=== PATIENT | male | born 1945 | race Caucasian/White ===

== ENCOUNTER 2024-09-10 15:36 | Day surgery (SDC) | payer MEDICARE, SELFPAY ==
[2024-09-10] VITALS (7 sets, daily range): BP systolic 118–161; BP diastolic 59–94; PULSE 87–104; RESP 10–20; TEMP 36.3–36.6; O2SAT 97–100
[2024-09-10] MEDS: ONDANSETRON HCL ODT 4 MG TABLET PO (16:24)
--- NOTE | 2024-09-10 17:32 | ED_ITS ---
HPI - Epistaxis General Chief complaint: Epistaxis Stated complaint: Nose Bleed Time Seen by Provider: 09/10/24 15:47 History of Present Illness HPI Narrative: Patient is on Plavix, had a septum repair 3 weeks ago in [place], was driving to [place] and started having a nose bleed, went to Urgent Care were Merocel placed and he was sent to the ER. Still having ongoing bleeding Related Data Allergies Allergy/AdvReac Type Severity Reaction Status Date / Time No Known Allergies Allergy Verified 09/10/24 15:38 Review of Systems 2 Review of Systems: All systems reviewed & are unremarkable except as noted in HPI and below Exam 2 Narrative: EXAMINATION OF ORGAN SYSTEMS/BODY AREAS: Constitutional: Vital signs per nursing GENERAL:[No acute distress, non-toxic appearing.] HEAD: Normal with no signs of head trauma. EYES: Tearing up ENT: Some blood dripping from both nares, L side with Merocel LUNGS: Nonlabored breathing. HEART: [Regular rate and rhythm] ABD: [Soft], [nontender to palpation] EXT: Normal range of motion SKIN: [No rashes or lesions.] NEURO: [Alert and oriented x 3. No gross focal sensory or strength deficits.] PSYCH: Normal affect Course Vital Signs Vital signs: Vital Signs Temperature 97.4 F L 09/10/24 15:40 Pulse Rate 104 H 09/10/24 15:40 Respiratory Rate 20 09/10/24 15:40 Blood Pressure 127/94 H 09/10/24 15:40 Pulse Oximetry 98 09/10/24 15:40 Oxygen Delivery Room Air 09/10/24 15:40 Temperature 97.5 F L 09/10/24 17:44 Pulse Rate 95 09/10/24 17:44 Respiratory Rate 18 09/10/24 17:44 Blood Pressure 129/59 L 09/10/24 17:44 Pulse Oximetry 100 09/10/24 17:44 Oxygen Delivery Room Air 09/10/24 15:40 Procedures Epistaxis Control bilateral: Epistaxis Control Date: 09/10/24 Epistaxis Control Time: 15:55 Nose Prepped With: lidocaine, oxymetazoline and other (TXA) Direct Inspection: unable to visualize Clots Removed by: blowing nose and manually Device Inserted: hemostatic balloon Device Size: 7 Patient Tolerated Procedure: well Complications: continued epistaxis MDM - Epistaxis MDM Narrative Medical decision making narrative: Patient presenting here with ongoing nosebleed, had recent septum surgery, I did atomize GEORGIDennise Afrin, removed the Merocel and then packed both nares with lidocaine with epinephrine soaked gauze while soaking the two long rhino rockets in lidocaine. Cause then removed and patient instructed to blow nose, large amount of clot removed with blowing and with manual extraction, then I did place rhino rocket, inflated, into the left naris, there was still additional bleeding around the rhino rocket so I then applied it to the right naris. Patient was uncomfortable but tolerated this well, unfortunately he was still having sensation of blood going down his throat after about an hour, I did discuss this with ENT who will come into hospital for surgical intervention. Discussed with patient and at bedside, he has felt resolution of his symptoms, discussed again with ENT, he feels that this may start bleeding again and he would like to have definitive management, patient and agree with plan. Lab Data 09/10/24 17:34 09/10/24 17:34 Labs: Lab Results 09/10/24 Range/Units 17:34 WBC 8.2 (4.5-10.0) K/mm3 RBC 4.40 L (4.6-6.20) M/mm3 Hgb 13.1 L (14.0-18.0) g/dL Hct 40.9 L (42.0-52.0) % MCV 93.0 (80-100) fl MCH 29.8 (26-34) pg MCHC 32.0 (32-36) g/dl RDW 14.1 (11.5-14.5) % Plt Count 149 L (150-375) k/mm3 MPV 10.9 H (7.4-10.4) fl Immature Gran % (Auto) 0.2 (0-0.5) % Neut % (Auto) 75.1 H (45.5-73.1) % Lymph % (Auto) 13.6 L (18.3-44.2) % [place] % (Auto) 7.6 (2.6-8.5) % Eos % (Auto) 2.8 (0-4.4) % Baso % (Auto) 0.7 (0.2-1.2) % Lymph # (Auto) 1.11 (0.9-3.2) K/mm3 [place] # (Auto) 0.6 (0.1-0.6) K/mm3 Eos # (Auto) 0.2 (0-0.3) K/mm3 Baso # (Auto) 0.1 (0.0-0.1) K/mm3 Abs Immat Gran (auto) 0.02 (0.00-0.031) K/mm3 Absolute Neuts (auto) 6.1 (1.3-6.7) K/mm3 Absolute Nucleated RBC 0.000 (0.0-0.012) K/mm3 Nucleated RBC % 0.0 (0.0-0.2) % PT Pending INR Pending APTT Pending Sodium Pending Potassium Pending Chloride Pending Carbon Dioxide Pending Anion Gap Pending BUN Pending Creatinine Pending Estim Creat Clear Calc Pending Estimated GFR Pending Glucose Pending Calcium Pending Discharge Plan Discharge Clinical Impression: Epistaxis Patient Disposition: Still a Patient Condition: Stable
[2024-09-10 17:43] LABS: Basophils Absolute Auto 0.1 K/mm3 (0.0-0.1); Basophils Percent Auto 0.7 % (0.2-1.2); Eosinophils Absolute Auto 0.2 K/mm3 (0-0.3); Eosinophils Percent Auto 2.8 % (0-4.4); Hematocrit 40.9 % (42.0-52.0); Hemoglobin 13.1 g/dL (14.0-18.0); Immature Granulocyte Absolute 0.02 K/mm3 (0.00-0.031); Immature Granulocyte Percent A 0.2 % (0-0.5); Lymphocytes Absolute Auto 1.11 K/mm3 (0.9-3.2); Lymphocytes Percent Auto 13.6 % (18.3-44.2); Mean Corpuscular Hemoglobin 29.8 pg (26-34); Mean Platelet Volume 10.9 fl (7.4-10.4); Monocytes Absolute Auto 0.6 K/mm3 (0.1-0.6); Monocytes Percent Auto 7.6 % (2.6-8.5); Neutrophils Absolute Auto 6.1 K/mm3 (1.3-6.7); Neutrophils Percent Auto 75.1 % (45.5-73.1); Platelet Count Result 149 k/mm3 (150-375); Red Cell Distribution Width 14.1 % (11.5-14.5); White Blood Count 8.2 K/mm3 (4.5-10.0)
[2024-09-10 17:57] LABS: Anion Gap 14 mmol/L (4-12); Blood Urea Nitrogen 29 mg/dL (9-20); Calcium 9.9 mg/dL (8.4-10.2); Carbon Dioxide 21 mmol/L (22-30); Chloride 106 mmol/L (98-107); Estimated CRCL calculation 57 ml/min; Estimated Glomerular Filt Rate > 60; Glucose 175 mg/dL (65-110); Potassium 4.4 mmol/L (3.4-5.0); Sodium 141 mmol/L (137-145)
[2024-09-10 17:59] LABS: INR 1.1; Prothrombin Time 14.5 Seconds (11.1-14.7)
[2024-09-10 18:00] LABS: Partial Thromboplastin Time 32.1 Seconds (22.3-36.8)
--- NOTE | 2024-09-10 18:00 | P.HP_ITS ---
H&P: HPI History of Present Illness Date/Time: 09/10/24 18:00 Chief Complaint: epistaxis Narrative: Sorin had septoplasty in [facility] 2 weeks ago. On plavix, hx of cardiac surgery and stenting. He lives in [place], was driving to [place] to sell his RV and developed epixtasis in our community and came to the ER. Required two rhinorockets, but had persistent bleeding. Concern for posterior bleeding. ENT consulted. Review of Systems Review of Systems: All systems reviewed & are unremarkable except as noted in HPI and below Meds Home Medications and Allergies Allergies Allergy/AdvReac Type Severity Reaction Status Date / Time No Known Allergies Allergy Verified 09/10/24 15:38 Vital Signs Vital Signs - 24 hr 09/10/24 15:40 09/10/24 17:44 Temperature 36.3 C L 36.4 C L Pulse Rate 104 H 95 Respiratory Rate 20 18 Blood Pressure 127/94 H 129/59 L Pulse Oximetry 98 100 Oxygen Delivery Room Air Exam Narrative: Bilateral posterior rhinrockets in place, still spitting up blood. Blood clot in oropharynx. Non distressed, rest of exam wnl. H&P: Results Labs Labs: Short CBC 09/10/24 Range/Units 17:34 WBC 8.2 (4.5-10.0) K/mm3 Hgb 13.1 L (14.0-18.0) g/dL Hct 40.9 L (42.0-52.0) % Plt Count 149 L (150-375) k/mm3 BMP 09/10/24 17:34 Sodium 141 Potassium 4.4 Chloride 106 Carbon Dioxide 21 L BUN 29 H Creatinine 0.99 Glucose 175 H Calcium 9.9 Assessment and Plan Assessment and plan (1) Epistaxis: Code(s): R04.0 - Epistaxis Status: Acute Plan Sorin has epistaxis in the setting of very recent septoplasty and currently on plavix. He is from [facility] and was in the process of driving to [place] to sell his RV. Given he is not near his surgeon or home community and is planning to drive two days back to [place] after this, I recommend going to OR for control of epistaxis. I discussed this with patient and who understand and agree. He will likely be able to d/c to [facility] after the procedure. I have recommended he let his surgeon know of this episode after he gets home.
--- NOTE | 2024-09-10 18:03 | WPDHPUPDATE1 ---
History and Physical Update Update Date/Time: 09/10/24 18:03 History and Physical has been reviewed, including an updated exam of the patient. There are NO changes in the patient's condition. Risks, benefits, and alternatives have been discussed and questions answered. Patient agrees to proceed with procedure.
--- NOTE | 2024-09-10 18:30 | WPDANESEPPF ---
Anes - Initial Pre Proc Eval Procedure: Operation Date: 09/10/24 18:30 Proposed Procedures p Cautery Of Nose Nasal - Papa Gallegos MD Date/Time: 09/10/24 18:30 Surgeon: Papa Gallegos MD Pre Op Diagnosis: Nose Bleed Patient Data Age: 79 Gender: M Height: 1.8 m Weight: 81 kg Last Vital Signs Temp 36.4 C L 09/10/24 17:44 Pulse 95 09/10/24 17:44 Resp 18 09/10/24 17:44 BP 129/59 L 09/10/24 17:44 Pulse Ox 100 09/10/24 17:44 O2 Del Method Room Air 09/10/24 15:40 Allergies Allergy/AdvReac Type Severity Reaction Status Date / Time No Known Allergies Allergy Verified 09/10/24 15:38 Laboratory Tests 09/10/24 17:34 WBC 8.2 K/mm3 (4.5-10.0) RBC 4.40 L M/mm3 (4.6-6.20) Hgb 13.1 L g/dL (14.0-18.0) Hct 40.9 L % (42.0-52.0) MCV 93.0 fl (80-100) MCH 29.8 pg (26-34) MCHC 32.0 g/dl (32-36) RDW 14.1 % (11.5-14.5) Plt Count 149 L k/mm3 (150-375) MPV 10.9 H fl (7.4-10.4) Immature Gran % (Auto) 0.2 % (0-0.5) Neut % (Auto) 75.1 H % (45.5-73.1) Lymph % (Auto) 13.6 L % (18.3-44.2) [place] % (Auto) 7.6 % (2.6-8.5) Eos % (Auto) 2.8 % (0-4.4) Baso % (Auto) 0.7 % (0.2-1.2) Lymph # (Auto) 1.11 K/mm3 (0.9-3.2) [place] # (Auto) 0.6 K/mm3 (0.1-0.6) Eos # (Auto) 0.2 K/mm3 (0-0.3) Baso # (Auto) 0.1 K/mm3 (0.0-0.1) Abs Immat Gran (auto) 0.02 K/mm3 (0.00-0.031) Absolute Neuts (auto) 6.1 K/mm3 (1.3-6.7) Absolute Nucleated RBC 0.000 K/mm3 (0.0-0.012) Nucleated RBC % 0.0 % (0.0-0.2) PT 14.5 Seconds (11.1-14.7) INR 1.1 APTT 32.1 Seconds (22.3-36.8) Sodium 141 mmol/L (137-145) Potassium 4.4 mmol/L (3.4-5.0) Chloride 106 mmol/L (98-107) Carbon Dioxide 21 L mmol/L (22-30) Anion Gap 14 H mmol/L (4-12) BUN 29 H mg/dL (9-20) Creatinine 0.99 mg/dL (0.7-1.3) Estim Creat Clear Calc 57 ml/min Estimated GFR > 60 (59 - ) Glucose 175 H mg/dL (65-110) Calcium 9.9 mg/dL (8.4-10.2) Patient hx anesthesia problems: none Family hx anesthesia problems: none Results Review: All pre-operative results and documents have been reviewed as part of the pre-operative evaluation. [facility] Past Medical History Medical History (Updated 09/10/24 @ 18:30 by Karishma Krueger CRNA) CAD (coronary artery disease) CABG (coronary artery bypass graft) planned Anes - Eval Final PreProcedure Day of Procedure 09/10/24 18:30 Patient weight: normal Heart: regular rate and rhythm Lungs: clear to auscultation Airway: Mallampati scale class II Neurological: alert and oriented Last oral intake: >/= 8 hours ASA classification: III Emergent: yes Anesthetic plan: proceed Anesthesia type and monitoring: general ETT Results Review: All pre-operative results and documents have been reviewed as part of the pre-operative evaluation. Informed Consent: The patient's anesthetic plan and its attendant risks and benefits were discussed with the patient/family/POA. Questions were solicited and answers provided to the satisfaction of the patient/family/POA.
[2024-09-10] MEDS: CELLULOSE OXIDIZED 2 x 14 INCH 1 PKT XX (18:53)
[2024-09-10] MEDS: OXYMETAZOLINE HCL 0.05% NAS 15 ML BTL (*BKC) 1 SPRAY NASAL (18:55)
--- NOTE | 2024-09-10 18:57 | W.PM.PROC2 ---
Procedure Note - Detailed Date of Procedure 09/10/24 Pre-op Diagnosis Nose Bleed Post-op Diagnosis Same Procedure Performed cautery of epistaxis, posterior, endoscopic Surgeon Papa Gallegos MD Anesthesia General Indications epistaxis after surgery Findings bleed from left floor of nasal cavity and inferior turbinate. Nasopore with surgicel wrapped around it was placed bilaterally. Description of Procedure Pt brought from ED to OR, placed under GETA without difficulty using glidescope. Timeout performed and pt draped. Rhinorockets deflated and removed bilaterally. The nose was examined endoscopically and clots were suctioned completely. This revealed active bleed from left floor of nasal cavity with some oozing along the inferior turbinate. The turbinates bilaterally have a raw appearance and may have had a more aggressive resection done previously. The septum showed no bleeding and was intact, midline and healing well from his septoplasty. Suction electrocautery used to cauterize the floor of nose and inferior turbinates. He was monitored for several minutes, no further bleeding. Nasopore wrapped in surgicel was then dipped in afrin and placed in the nasal passages bilaterally to ensure hemostasis. He was then returned to anesthesia who woke him up, extubated him and transferred him to PACU for recovery for discharge home. Estimated Blood Loss 50 Drains No Packing Yes (nasopore and surgicel) Pathology None sent Complications No immediate complications Condition Stable Disposition PACU
[2024-09-10] MEDS: LACTATED RINGERS 1,000 ML 30 ML IV CONT (19:01)
[2024-09-10] MEDS: ACETAMINOPHEN 500 MG TABLET 1000 MG PO (20:02)
== END 2024-09-10 20:26 | disposition home or self-care (01) ==
LOC: ANHED 17:21 → ANHSURGERY 17:31
PROVIDERS: Emergency Provider Emergency Medicine; Visit Provider Otolaryngology
PROC: (CPT 31238; principal; 2024-09-10 18:30)
DX: R04.0 Epistaxis (principal); I25.10 Atherosclerotic heart disease of native coronary artery without angina pectoris; Z98.890 Other specified postprocedural states; Z95.5 Presence of coronary angioplasty implant and graft; Z95.1 Presence of aortocoronary bypass graft
CPT/HCPCS: 31238; 30905; 36415; 80048; 85025; 85610; 85730; 99285; A9270; J0330; J1100; J2003; J2405; J2704; J3010; J7120